=== PATIENT | female | born 1980 | race Caucasian/White ===

== ENCOUNTER 2023-07-05 04:55 | Emergency (ER) | payer OTHER ==
[~2023-07-05] VITALS: Ht 162.5 cm; Wt 81.6 kg
[~2023-07-05 04:55] MED LIST: ANAPROX DS550 MG PO; BACTRIM DS 8001 TA1 PO; CIPRODEX 0.3%-7.5 ML OT; KEFLEX500 MG PO; MEDROL DOSEPAK4 MG PO; SEPTRA DS 800 M1 TAB PO; TRIMOX500 MG PO
[2023-07-06 05:06] LABS: HBSAG Negative (Negative); HEP B CORE AB, IGM Negative (Negative); HEPATITIS C ANTIBODY Non Reactive (Non Reactive)
== END 2023-07-05 05:43 | disposition home or self-care (01) ==
LOC: ED 04:55
PROVIDERS: Internal Medicine
DX: S69.80XA Other specified injuries of unspecified wrist, hand and finger(s), initial encounter (principal); F41.9 Anxiety disorder, unspecified; F32.A Depression, unspecified; Z98.890 Other specified postprocedural states; W46.0XXA Contact with hypodermic needle, initial encounter; Y93.89 Activity, other specified; Y92.89 Other specified places as the place of occurrence of the external cause; Y99.0 Civilian activity done for income or pay

== ENCOUNTER 2024-06-14 21:01 | Emergency (ER) | payer BC ==
[~2024-06-14] VITALS: Ht 157.4 cm; Wt 86.6 kg
[2024-06-14] MEDS ORDERED: PROZAC10 MG PO (21:13)
[2024-06-14] MEDS ORDERED: VRAYLAR3 MG PO (21:14)
[2024-06-14 21:38] LABS: BILIRUBIN Negative (Negative); BLOOD 3+ (Negative); CLARITY Turbid (Clear); COLOR Yellow (Yellow); GLUCOSE Negative (Negative); KETONE Trace (Negative); LEUKO ESTERASE 3+ (Negative); NITRITE Positive (Negative); SPECIFIC GRAVITY 1.025 (1.001-1.030)
[2024-06-14 21:38] LABS: BASO # 0.1 10*3/uL (0.0-0.1); BASO % 0.5 % (0.0-1.0); EOS # 0.2 10*3/uL (0.0-0.4); EOS % 1.7 % (1.0-4.0); HEMATOCRIT 35.6 % (37.0-47.0); MEAN CELL VOLUME 71.9 fl (81.0-99.0); MEAN CORPUSCULAR HGB 21.8 pg (27.0-31.0); MEAN CORPUSCULAR HGB CONC 30.3 g/dl (33.0-37.0); MEAN PLATELET VOLUME 9.1 fl (9.6-12.3); MONO # 0.6 10*3/uL (0.1-1.0); MONO % 5.5 % (3.0-9.0); NEUT # 6.7 10*3/uL (2.3-7.9); NEUT % 61.5 % (47.0-73.0); PLATELET COUNT AUTOMATED 409 10*3/uL (130-400); RED BLOOD COUNT 4.95 10*6/uL (4.10-5.10); RED CELL DISTRI WIDTH 18.2 % (0-14.5); WHITE BLOOD COUNT 10.9 10*3/uL (4.8-10.8)
[2024-06-14 21:50] LABS: BACTERIA 2+; RBC 41-50 rbc/hpf (0-2); WBC 31-40 wbc/hpf (0-5)
[2024-06-14 22:08] LABS: BUN 10 mg/dl (9-23); CHLORIDE 105 mmol/L (98-107); POTASSIUM 3.9 mmol/L (3.4-5.1)
[2024-06-14] MEDS ORDERED: PYRIDIUM100 MG PO (22:14)
[2024-06-14] MEDS ORDERED: SEPTDS PO (22:14)
[2024-06-14] MEDS ORDERED: Sulfamethoxazole/Trimethopri 1 TAB TAB PO ONE (22:15)
== END 2024-06-14 22:30 | disposition home or self-care (01) ==
LOC: ED 21:01
PROVIDERS: Physician Assistant Medical
DX: N39.0 Urinary tract infection, site not specified (principal); Z79.899 Other long term (current) drug therapy; Z98.890 Other specified postprocedural states